=== PATIENT | female | born 1980 | race Hispanic/Latino ===

== ENCOUNTER 2020-02-12 07:57 | Observation (INO) | payer BC, OTHER ==
[~2020-02-12] VITALS: Ht 160 cm; Wt 79.4 kg
[2020-02-12 08:48] LABS: APPEARANCE,URINE Clear (CLEAR); BILIRUBIN,URINE Negative (NEGATIVE); COLOR,URINE Yellow (YELLOW); GLUCOSE, URINE (UA) Negative (NEGATIVE); KETONES,URINE Negative (NEGATIVE); LEUKOCYTE ESTERASE ,URINE Large (NEGATIVE); NITRATE,URINE Negative (NEGATIVE); OCCULT BLOOD,URINE Negative (NEGATIVE); PROTEIN,URINE Negative (NEGATIVE)
[2020-02-12 09:19] LABS: BACTERIA,URINE Few /HPF (None Seen)
[2020-02-12 09:20] LABS: RBC,URINE 0-1 /HPF (0-1)
== END 2020-02-12 09:25 | disposition home or self-care (01) ==
LOC: LDH 07:57
PROVIDERS: ADMIT Obstetrics & Gynecology; ATTEND Obstetrics & Gynecology
DX: O36.8130 Decreased fetal movements, third trimester, not applicable or unspecified (principal); Z3A.38 38 weeks gestation of pregnancy
CPT/HCPCS: 59025; 76819; 81001; 87088; G0378

== ENCOUNTER 2020-02-14 20:02 | Inpatient (IN) | payer BC ==
[~2020-02-14] VITALS: Ht 160 cm; Wt 79.4 kg
[2020-02-14 20:39] LABS: APPEARANCE,URINE Clear (CLEAR); BILIRUBIN,URINE Negative (NEGATIVE); COLOR,URINE Yellow (YELLOW); GLUCOSE, URINE (UA) Negative (NEGATIVE); KETONES,URINE Negative (NEGATIVE); LEUKOCYTE ESTERASE ,URINE Large (NEGATIVE); NITRATE,URINE Negative (NEGATIVE); OCCULT BLOOD,URINE Negative (NEGATIVE); PH,URINE 6.5 (5.0-8.0); PROTEIN,URINE Negative (NEGATIVE)
[2020-02-14 21:17] LABS: BACTERIA,URINE Few /HPF (None Seen)
[2020-02-14 21:18] LABS: SQUAMOUS EPITHELIAL CELL,UR Few /HPF (0-2)
[2020-02-14] MEDS: LACTATED RINGERS 1000ML 1,000 ML IV SCH (21:28)
[2020-02-14 21:31] LABS: HEMATOCRIT 34.4 % (36-48); MEAN CORPUSCULAR HEMOGLOBIN 30.8 pg (27.0-33.0); MEAN CORPUSCULAR HGB CONC 33.7 g/dL (32.0-36.0); MEAN CORPUSCULAR VOLUME 91.2 fL (79-99); RED BLOOD CELL COUNT(AUTO) 3.77 MIL/uL (4.00-5.50); RED CELL DISTRIBUTION WIDTH 14.2 % (11.0-15.5); WHITE BLOOD COUNT (AUTO) 8.3 K/uL (4.8-10.8)
[2020-02-14] MEDS ORDERED: DINOPROSTONE 10 MG VAGINAL SUPP VG SCH (21:35)
[2020-02-14 22:00] VITALS: BP 135/79
[2020-02-15] MEDS: LACTATED RINGERS 1000ML 1,000 ML IV SCH (04:15)
[2020-02-15] MEDS ORDERED: PREN-196 PO (06:51)
[2020-02-15 06:54] VITALS: BP 135/79
[2020-02-15] MEDS ORDERED: OXYTOCIN-LR 20 UNITS/1000 ML 1,000 ML IV ONE ×2 (06:54→12:04)
[2020-02-15 06:57] VITALS: BP 135/79
[2020-02-15] MEDS ORDERED: EPHEDRINE SULFATE 50 MG/ML AMPULE IVP PRN (08:00)
[2020-02-15] MEDS ORDERED: LACTATED RINGERS 500 ML 500 ML IV PRN (08:00)
[2020-02-15] MEDS ORDERED: NALOXONE HCL 0.4 MG/1 ML ML IV PRN (08:00)
[2020-02-15] MEDS ORDERED: OXYTOCIN 10 USP UNITS/ML 20 UNIT in LACTATED RINGERS 1000ML 1,000 ML IV SCH (09:00)
[2020-02-15] MEDS ORDERED: MISOPROSTOL 200 MCG TABLET ONE (11:34)
[2020-02-15] MEDS ORDERED: ACETAMINOPHEN-CODEINE 300/30MG TAB PO PRN (14:15)
[2020-02-15] MEDS ORDERED: OXYTOCIN-LR 20 UNITS/1000 ML 1,000 ML IV SCH (14:15)
[2020-02-15] MEDS ORDERED: MEASLES/MUMPS/RUBELLA VACCINE, LIVE 0.5 ML/VIAL SQ PRN (14:15)
[2020-02-15] MEDS ORDERED: BENZOCAINE/LANOLIN/ALOE VERA 60 ML AEROSOL TP PRN (14:15)
[2020-02-15] MEDS ORDERED: LANOLIN 30GM OINTMENT TP PRN (14:15)
[2020-02-15] MEDS ORDERED: DIPH,PERTUSS(ACELL),TET VAC/PF 0.5 ML VIAL IM PRN (14:15)
[2020-02-15] MEDS ORDERED: WITCH HAZEL 1 PAD TP PRN (14:15)
[2020-02-15] MEDS ORDERED: ACETAMINOPHEN 325 MG TAB PO PRN (14:15)
[2020-02-15 14:34] VITALS: BP 137/89
[2020-02-15] MEDS: IBUPROFEN 600 MG TABLET PO PRN ×2 (14:49→21:10)
[2020-02-15 19:33] VITALS: BP 122/77
[2020-02-15] MEDS: DOCUSATE SODIUM 100 MG CAP PO SCH (20:47)
[2020-02-15 23:45] VITALS: BP_SYST 126; BP_DIAS 55; BP_DIAS 76
[2020-02-16 03:04] VITALS: BP 126/75
[2020-02-16 06:56] LABS: HEMATOCRIT 29.6 % (36-48); MEAN CORPUSCULAR HEMOGLOBIN 30.6 pg (27.0-33.0); MEAN CORPUSCULAR HGB CONC 33.4 g/dL (32.0-36.0); MEAN CORPUSCULAR VOLUME 91.4 fL (79-99); RED BLOOD CELL COUNT(AUTO) 3.24 MIL/uL (4.00-5.50); RED CELL DISTRIBUTION WIDTH 13.9 % (11.0-15.5)
[2020-02-16 07:24] VITALS: BP 127/84
[2020-02-16] MEDS: IBUPROFEN 600 MG TABLET PO PRN (07:35)
--- NOTE | 2020-02-16 07:43 | NUR ---
Dr. Ibrahim called and asked for update on her pt. He ordered that pt can be discharged today once the baby is discharged. Addendum: 02/16/20 at 1002 by TROY DUEÑAS RN Amended: Links added.
[2020-02-16 08:13] LABS: HEPATITIS Bs ANTIGEN SCREEN P Negative (Negative)
[2020-02-16] MEDS: DOCUSATE SODIUM 100 MG CAP PO SCH (09:03)
[2020-02-16 11:48] VITALS: BP 129/81
--- NOTE | 2020-02-16 11:50 | NUR ---
pt is discharged. verbal and written discharge instructions given, pls refer to exit care. informed of the follow up appointment. no prescription given. informed to call the doctor for concerns. pt voiced understanding to all things discussed. Addendum: 02/16/20 at 1203 by TROY DUEÑAS RN Amended: Links added.
--- NOTE | 2020-02-16 12:20 | NUR ---
pt is dismissed with baby in stable condition stable condition, brought to private car via wheelchair by Tiffany mohan Addendum: 02/16/20 at 1239 by TROY DUEÑAS RN Amended: Links added.
== END 2020-02-16 12:20 | disposition home or self-care (01) | DRG 807 ==
LOC: LDH 20:02 → WSH 02-15 14:30
PROVIDERS: ADMIT Obstetrics & Gynecology; ATTEND Obstetrics & Gynecology
PROC: 10D07Z6 Extraction of Products of Conception, Vacuum, Via Natural or Artificial Opening (ICD-10-PCS; principal; 2020-02-15)
PROC: 0HQ9XZZ Repair Perineum Skin, External Approach (ICD-10-PCS; 2020-02-15)
PROC: 10907ZC Drainage of Amniotic Fluid, Therapeutic from Products of Conception, Via Natural or Artificial Opening (ICD-10-PCS; 2020-02-15)
PROC: 3E033VJ Introduction of Other Hormone into Peripheral Vein, Percutaneous Approach (ICD-10-PCS; 2020-02-15)
PROC: 3E0P7VZ Introduction of Hormone into Female Reproductive, Via Natural or Artificial Opening (ICD-10-PCS; 2020-02-15)
PROC: 3E0R3BZ Introduction of Anesthetic Agent into Spinal Canal, Percutaneous Approach (ICD-10-PCS; 2020-02-15)
PROC: 00HU33Z Insertion of Infusion Device into Spinal Canal, Percutaneous Approach (ICD-10-PCS; 2020-02-15)
PROC: 3E0134Z Introduction of Serum, Toxoid and Vaccine into Subcutaneous Tissue, Percutaneous Approach (ICD-10-PCS; 2020-02-15)
PROC: 3E0234Z Introduction of Serum, Toxoid and Vaccine into Muscle, Percutaneous Approach (ICD-10-PCS; 2020-02-15)
DX: O99.344 Other mental disorders complicating childbirth (principal); Z37.0 Single live birth; Z3A.39 39 weeks gestation of pregnancy; F41.9 Anxiety disorder, unspecified; O70.0 First degree perineal laceration during delivery; Z23 Encounter for immunization
CPT/HCPCS: 36415; 59025; 76819; 81001; 85027; 86592; 86850; 86900; 86901; 87088; 87340; 90715; A4314; G0378; J2590; J7120